=== PATIENT | male | born 1995 | race Caucasian/White ===

== ENCOUNTER 2019-07-12 15:09 | Emergency (ER) | payer BC, OTHER ==
[~2019-07-12] VITALS: Ht 185.4 cm; Wt 81.6 kg
[2019-07-12 15:17] VITALS: BP 134/72
--- NOTE | 2019-07-12 15:21 | NUR ---
ESTIVEN PHILIP AT BEDSIDE FOR EVAL.
== END 2019-07-12 15:39 | disposition home or self-care (01) ==
LOC: ER 15:20
DX: S00.03XA Contusion of scalp, initial encounter (principal); S09.8XXA Other specified injuries of head, initial encounter; R51 Headache; R11.2 Nausea with vomiting, unspecified; W01.0XXA Fall on same level from slipping, tripping and stumbling without subsequent striking against object, initial encounter; Y93.89 Activity, other specified; Y92.89 Other specified places as the place of occurrence of the external cause; Y99.8 Other external cause status

== ENCOUNTER 2019-07-14 13:09 | Emergency (ER) | payer BC, OTHER ==
[~2019-07-14] VITALS: Ht 185.4 cm; Wt 79.4 kg
--- NOTE | 2019-07-14 13:15 | NUR ---
HEADACHE S/P FALL ON 07/12/2019. Patient a/ox4, -n/v. no sob noted. kept comfortable.
--- NOTE | 2019-07-14 13:30 | NUR ---
seen and evaluted by dr bland
--- NOTE | 2019-07-14 13:59 | NUR ---
Ambulatory with steady gait. No distress noted. Needs attended. Patient discharged to home in stable condition. Written and verbal after care instructions given. Patient verbalizes understanding of instruction.
[2019-07-14 14:00] VITALS: BP 134/75
== END 2019-07-14 14:00 | disposition home or self-care (01) ==
LOC: ER 13:12
DX: S06.0X0A Concussion without loss of consciousness, initial encounter (principal); S09.8XXA Other specified injuries of head, initial encounter; R51 Headache; W01.0XXA Fall on same level from slipping, tripping and stumbling without subsequent striking against object, initial encounter; Y93.89 Activity, other specified; Y92.89 Other specified places as the place of occurrence of the external cause; Y99.8 Other external cause status
CPT/HCPCS: 70450-TC

== ENCOUNTER 2024-09-13 20:19 | Emergency (ER) | payer BC, OTHER ==
[~2024-09-13] VITALS: Ht 182.9 cm; Wt 83.9 kg
[2024-09-13 21:36] LABS: BASOPHILS % (AUTO) 0.4 % (0.0-2.0); EOSINOPHILS # (AUTO) 0.1 K/uL (0.0-0.7); EOSINOPHILS % (AUTO) 1.9 % (0.0-6.0); HEMATOCRIT 40 % (39-51); LYMPHOCYTES # (AUTO) 1.8 K/uL (0.8-4.8); LYMPHOCYTES % (AUTO) 23.2 % (20.0-44.0); MEAN CORPUSCULAR HEMOGLOBIN 33 PG (26.0-33.0); MEAN CORPUSCULAR HGB CONC 35 g/dl (31.0-36.0); MEAN CORPUSCULAR VOLUME 95 fL (80-96); MONOCYTES # (AUTO) 0.6 K/uL (0.1-1.30); MONOCYTES % (AUTO) 7.4 % (2.0-12.0); NEUTROPHILS # (AUTO) 5.1 K/uL (1.8-8.9); NEUTROPHILS % (AUTO) 67.1 % (43.0-81.0); PLATELET COUNT (AUTO) 302 K/uL (150-450); RED CELL DISTRIBUTION WIDTH 13.5 % (11.5-15.0); WHITE BLOOD COUNT (AUTO) 7.6 K/uL (4.3-11.0)
[2024-09-13 21:48] LABS: ALBUMIN 4.7 g/dL (3.4-5.0); BILIRUBIN,DIRECT 0.2 mg/dL (0.0-0.2); BILIRUBIN,TOTAL 0.8 mg/dL (0.2-1.0); CALCIUM, SERUM 9.6 mg/dL (8.5-10.1); CREATININE 0.8 mg/dL (0.6-1.3); POTASSIUM 4.2 mmol/L (3.5-5.1); TOTAL PROTEIN, SERUM 7.5 g/dL (6.4-8.2)
[2024-09-13 21:56] LABS: APPEARANCE,URINE CLEAR (CLEAR); BILIRUBIN,URINE NEGATIVE (NEGATIVE); BLOOD, URINE NEGATIVE Ery/uL (NEGATIVE); COLOR,URINE YELLOW (YELLOW); KETONES,URINE NEGATIVE (NEGATIVE); LEUKOCYTE ESTERASE ,URINE NEGATIVE (NEGATIVE); NITRITE, URINE NEGATIVE (NEGATIVE); PROTEIN,URINE TRACE mg/dl (NEGATIVE); UGLUCOSE NEGATIVE (NEGATIVE); UROBILINOGEN,URINE 0.2 EU/dL (0.2)
[2024-09-13] MEDS ORDERED: IV NS 0.9% 250 ML IV ONE (22:29)
[2024-09-13] MEDS ORDERED: IOHEXOL-300 100 ML VIAL IV ONE (22:29)
[2024-09-13 22:30] LABS: RBC,URINE NONE SEEN /HPF (0-2); WBC,URINE 0-2 /HPF (0-3)
[2024-09-13] MEDS ORDERED: CT SWABBABLE VALVE TRANS SET 1 EA INFUS.SET MC ONE (22:30)
[2024-09-13 22:31] LABS: ADD URINE CULTURE NO; BACTERIA,URINE None seen /HPF (None Seen); CALCIUM OXALATE CRYSTALS,UR Rare /HPF (None Seen); SQUAMOUS EPITHELIAL CELL,UR Rare /HPF (None Seen)
[2024-09-13] MEDS ORDERED: MORPHINE SULFATE INJ 4 MG/ML DISP.SYRIN ONE (22:33)
[2024-09-13] MEDS ORDERED: ONDANSETRON HCL/PF 4 MG/2 ML VIAL ONE (22:33)
[2024-09-13] MEDS: MORPHINE SULFATE INJ 2 MG/ML DISP.SYRIN IV ONE (22:37)
[2024-09-13] MEDS: IV LR 1000 ML 1,000 ML BAG IV ONE (22:37)
[2024-09-13] MEDS: ONDANSETRON HCL/PF 4 MG/2 ML VIAL IV ONE (22:37)
[2024-09-14] MEDS ORDERED: DICY10CA37 PO (00:55)
[2024-09-14 01:05] VITALS: BP 107/60; TEMP 97.8; O2SAT 99
== END 2024-09-14 01:05 | disposition home or self-care (01) ==
LOC: ER 20:25
DX: R10.30 Lower abdominal pain, unspecified (principal); R19.7 Diarrhea, unspecified; R00.1 Bradycardia, unspecified; R11.0 Nausea; F31.9 Bipolar disorder, unspecified; Z60.2 Problems related to living alone
CPT/HCPCS: 99285; 74177; 96374; 96361; 96375; 93005; 85025; 80048; 87086; 83690; 80076; 81001; 36415; J2270; J2405; J7120; J7050; Q9967